=== PATIENT | male | born 1965 | race Caucasian/White ===

== ENCOUNTER 2022-02-21 17:56 | Emergency (ER) | payer OTHER, SELFPAY ==
[2022-02-21] VITALS (30 sets, daily range): BP systolic 146–182; BP diastolic 98–128; PULSE 80–92; RESP 13–35; TEMP 36.3–37; O2SAT 92–100
--- NOTE | 2022-02-21 17:45 | RT.EKG_ITS ---
APPROVED REPORT Exam: Resting ECG Reason for Exam: chest pain Patient Location: E HR:93 bpm ECG Measurements Heart Rate 93 AXIS CA 169 P 10 QRSd 85 QRS 32 QT 327 T 20 QTc 407 Conclusion Sinus rhythm...normal P axis, V-rate 60- 99 Anterolateral infarct, acute...ST >0.20mV, V2-V6,I,aVL sinus rhyth, normal invervals, STEMI with elevations in II IIi aVF, V4-V6, deep ST depression V1-V2
--- NOTE | 2022-02-21 18:00 | DI.RAD_ITS ---
Exam(s) XR PORTABLE CHEST AP EXAM: XR PORTABLE CHEST AP CLINICAL HISTORY: stemi TECHNIQUE: 2D digital imaging was performed of the chest. One image was obtained. An AP view was ob tained. COMPARISON: No exams were available for comparison FINDINGS: MEDIASTINUM: Normal. HEART: Normal. PULMONARY VASCULATURE: Normal. LUNGS: Clear. PLEURAL SPACE: No pleural effusion or pneumothorax. BONE:Within normal limits for the patient's age. OTHER FINDINGS:Normal. IMPRESSION: No acute pulmonary findings. DATA REPOSITORY: RADIATION DOSE DELIVERED:
--- NOTE | 2022-02-21 18:16 | W.ED.GENAD ---
Discharge Plan Disposition Patient Disposition: [facility] Condition: Serious Discharge Details Clinical Impression: ST elevation (STEMI) myocardial infarction, Chest pain Primary Care Provider: Kia,Local ED Provider: Almas Lundy Home Meds and New Rx's Prescriptions: No Action valsartan 160 mg Tablet 160 mg PO DAILY Medical Decision Making 56-year-old male history of high cholesterol presents with anterior chest discomfort rating to jaw and right arm over the past hour, notably hypertensive arrival, no respiratory distress normoxic, mentating normally, EKG showing ST segment elevations in 2 3 aVF as well as V5 and V6 with deep ST depression V1 V2 consistent with inferior lateral STEMI; aspirin 325, morphine and light fluids have been initiated, holding nitro at this time given concern for right side involvement; STEMI alert has been activated, stat paged to [facility] cardiology, have alerted [facility] as patient will likely need air transport. Will consult with cardiology to see if they would like us to push thrombolytics before transport. Patient and family amenable to transport as needed. 18: [address] Duke of cardiology at [facility] who agrees with transfer for stat catheterization. Patient is already being given heparin aspirin morphine and Zofran; Dr. Duke recommends thrombolysis with TNK, before which we must lower his blood pressure and recommends sublingual nitro with a goal of pressures less than 180/110, also will add Plavix 300 mg p.o. Discussed risk and benefits of TNK with patient and family, who are amenable with moving forward with treatment. Blood pressure successfully reduced with 0.4 mg sublingual nitro to 140/100. TNK has been administered [facility] flight is in route. HPI General Date/Time Provider Initiated Documentation: 02/21/22 18:13. HPI Narrative: 56-year-old male history of high cholesterol presents with anterior chest pain rating to jaw and right arm that began approximately 1 hour ago. No history of known cardiac disease, no stenting or open heart surgery. Related Data Home Medications Medication Instructions Recorded Confirmed valsartan 160 mg tablet 160 mg PO DAILY 02/21/22 02/21/22 Allergies Allergy/AdvReac Type Severity Reaction Status Date / Time No Known Allergies Allergy Unverified 02/21/22 18:06 General Stated Complaint: Chest Pain MARIO: 3 Review of Systems Narrative: Review of Systems Constitutional: negative Eyes: negative ENT: negative Cardiovascular: Chest pain Respiratory: negative Gastrointestinal: negative : negative Musculoskeletal: negative Skin: negative Neurologic: negative Psych: negative PFSH All Active Problems (Updated 02/21/22 @ 18:51 by Almas Lundy MD) ST elevation (STEMI) myocardial infarction (Acute) Chest pain (Acute) Social History Smoking/Tobacco Use Status: Never Smoking risk assessment performed?: Yes Alcohol Intake: current Alcohol Intake frequency: holidays/special occasions only Drug use: Never Substance use type: does not use Do you feel safe at home: Yes Do you feel safe in your relationship?: Yes Exam Narrative Exam Narrative: Physical Examination General: alert, awake, cooperative, mildly uncomfortable HEENT: normocephalic, atraumatic; PERRL, EOM intact, conjunctiva normal; no nasal discharge; moist mucous membranes, oral and pharyngeal mucosa normal, tolerating secretions Neck: supple, trachea midline; full ROM Chest: normal to inspection Respiratory: normal respiratory effort, speaking in full sentences, clear to auscultation, no wheezing, rales or rhonchi Cardiac: regular rate, regular rhythm, S1S2 intact, no murmurs rubs or gallops GI: abdomen soft, non-tender, non-distended; no palpable mass or hepatosplenomegaly Skin: no lesions, rashes or trauma appreciated Neuro: AAOx3, normal speech, moving all extremities Extremities: Warm well perfused Psych: Appropriate mood and affect Course Vital Signs Vital signs: Vital Signs Temperature 37.0 C 02/21/22 18:00 Pulse 92 H 02/21/22 18:00 Respiratory Rate 22 02/21/22 18:00 Blood Pressure 182/128 H 02/21/22 18:00 Pulse Oximetry 100 02/21/22 18:00 Temperature 37.0 C 02/21/22 18:00 Temperature Source Temporal Artery Scan 02/21/22 18:00 Pulse 91 H 02/21/22 18:06 Respiratory Rate 23 02/21/22 18:13 Respiratory Effort Short of Breath 02/21/22 18:04 Respiratory Depth Normal 02/21/22 18:04 Respiratory Pattern Normal 02/21/22 18:04 Blood Pressure 182/119 H 02/21/22 18:06 Blood Pressure Position Sitting 02/21/22 18:00 Pulse Oximetry 97 02/21/22 18:13 Oxygen Delivery Method Room Air 02/21/22 18:00 Oxygen Flow Rate 0 02/21/22 18:00 Pain Level 5 02/21/22 18:04 PAWSS Have you Been Recently Intoxicated or Drunk Within the Last 30 days?: No Have you Ever Experienced Previous Episodes of Alcohol Withdrawal?: No Have you ever Experienced Withdrawal Seizures?: No Have you ever Experienced Delirium Tremens(DT)s?: No Have you ever undergone Alcohol Rehabilitation Treatment (i.e, inpt ot outpatient treatment programs)?: No Have you ever Experienced Blackouts?: No Have you ever Combined Alcohol with other Downers within the last 90 days?: No Have you ever Combined Alcohol with any other Substance of Abuse during the last 90 days?: No Result: 0
[2022-02-21] MEDS: Aspirin 325 MG TAB PO (18:18)
[2022-02-21] MEDS: MORPHine 4 MG/ML SYR 2 MG IVP (18:19)
[2022-02-21] MEDS: Ondansetron 4 MG/2 ML VIAL IVP (18:23)
[2022-02-21] MEDS: Normal Saline 500 ML 1000 ML IV (18:24)
[2022-02-21 18:25] LABS: Abs Immature Grans 0.12 10^3/uL (0.0-0.06); Absolute Basophil Count 0.07 10^3/uL (0.0-0.2); Absolute Eosinophil Count 0.01 10^3/uL (0.0-0.7); Absolute Lymphocyte Count 1.37 10^3/uL (1.2-3.4); Absolute Monocyte Count 0.66 10^3/uL (0.1-0.8); Basophils % 0.6; Eosinophils % 0.1; HCT 43.6 % (40.0-50.0); HGB 14.4 g/dL (13.5-17.5); Lymphocytes % 11.4; MCH 29.5 pg (27.0-33.0); MCV 89 fL (80-95); MPV 10.3 fL (8.0-11.0); Monocytes % 5.5; Neutrophils % 81.4; Platelet Count 355 10^3/uL (130-400); RBC 4.88 10^6/uL (4.36-5.78); RDW 12.6 % (11.8-14.1); RDW-SD 41.1 fL; WBC 12.05 10^3/uL (4.4-10.8)
[2022-02-21 18:26] LABS: Absolute Neutrophil Count 9.81 10^3/uL (1.2-6.7)
--- NOTE | 2022-02-21 18:34 | DI.VRAD_ITS ---
PROCEDURE INFORMATION: Exam: XR Chest Exam date and time: 02/21/2022 6:08 PM Age: 56 years old Clinical indication: Other: Stemi TECHNIQUE: Imaging protocol: Radiologic exam of the chest. Views: 1 view. COMPARISON: No relevant prior studies available. FINDINGS: Lungs: No focal consolidation. Borderline perihilar vascular fullness., may be accentuated by technique.. Pleural spaces: Unremarkable. No pleural effusion. No pneumothorax. Heart/Mediastinum: Top-normal size cardiac silhouette. Vasculature: Tortuous atheromatous aorta. Bones/joints: Unremarkable. IMPRESSION: 1. Top-normal size cardiac silhouette. 2. Borderline perihilar vascular fullness, may be accentuated by technique. Dictated and Authenticated by: Carlota Mccabe MD. Ordering:ALIREZA Coburn MD
[2022-02-21] MEDS: nitroGLYcerin 0.4 MG TAB SL (18:35)
[2022-02-21 18:38] LABS: INR 0.9 (0.9-1.1); PTT Activated 21.5 sec (21.0-27.5); Prothrombin Time 9.5 sec (9.3-11.0)
[2022-02-21] MEDS: Clopidogrel 300 MG TAB PO (18:41)
--- NOTE | 2022-02-21 18:41 | NUR.NOTE ---
Referral made to [facility] for urgent follow up due to SVT and new onset CHF. Placed referral in the career services representative's box for follow up. Nursing Note:
[2022-02-21] MEDS: Tenecteplase 50 MG KIT IVP (18:46)
[2022-02-21 18:47] LABS: ALT 68 U/L (16-63); AST 26 U/L (15-37); Albumin 4.2 g/dL (3.4-5.0); Alkaline Phosphatase 98 U/L (46-116); Anion Gap 11.4 mmol/L (3-11); BUN 22 mg/dL (7-18); Bilirubin, Total 0.4 mg/dL (0.2-1.0); CO2 22.6 mmol/L (21.0-32.0); CREATININE 1.2 mg/dL (0.70-1.30); Calcium 9.3 mg/dL (8.5-10.1); Chloride 103 mmol/L (98-107); Glucose 126 mg/dL (74-106); NT-proBNP 101 pg/mL (<300); Potassium 4.6 mmol/L (3.5-5.1); Sodium 137 mmol/L (136-145); Total Protein 8.6 g/dL (6.4-8.2)
[2022-02-21 19:07] LABS: Troponin I 116 ng/L (<or=60)
--- NOTE | 2022-02-21 19:29 | NUR.NOTE ---
Nursing Note: Patient tolerated TNK well with no change in symptoms or complaints. Blood pressure lowered as charted. Patient left ER with Heparin drip running at 10ml/hr. Report given to Julia at [facility] [place] [place] as well as flight crew.
--- NOTE | 2022-02-23 07:15 | RT.EKG_ITS ---
APPROVED REPORT Exam: Resting ECG Reason for Exam: chest pain Patient Location: E HR:94 bpm ECG Measurements Heart Rate 94 AXIS CA 65 P 0 QRSd 91 QRS 43 QT 319 T 21 QTc 399 Conclusion Sinus rhythm...normal P axis, V-rate 60- 99 Inferior infarct, acute...ST>0.10mV, T upright, II III aVF Anterolateral infarct, age indeterminate...Q >35mS, flat/neg T, V3-V6,I,aVL sinus rhtym, st elevation II III aVF, reciprical depression V1, V2, V3, V4, t waves invesion V2-V6, c onsistent with STEMI
== END 2022-02-21 19:18 | disposition short-term general hospital (02) ==
PROVIDERS: Emergency Provider Emergency Medicine
DX: I21.3 ST elevation (STEMI) myocardial infarction of unspecified site (principal); R07.9 Chest pain, unspecified; I10 Essential (primary) hypertension
CPT/HCPCS: 36415; 80053; 93005; 96361; 96365; 96375; 96376; 99285; 71045; 83880; 84484; 85025; 85610; 85730; 93010; J2270; J2405; J3101